=== PATIENT | female | born 1945 | race Caucasian/White ===

== ENCOUNTER 2018-02-26 06:34 | Inpatient (IN) ==
[2018-02-26] MEDS ORDERED: Post-op Orders (for Pharmacy) OTHER STA (06:58)
[2018-02-26] MEDS ORDERED: Chlorhexidine Gluconate 2% 1 Pack (2 Cloths) TOPICAL ONE (08:04)
[2018-02-26] MEDS ORDERED: ceFAZolin 2 GM Premix Inj 2 GM/50 ML PIGGYBACK IV.SIG ONE (08:04)
[2018-02-26] MEDS ORDERED: Sodium Chlor 0.9% Inj 250 ML ONE (08:04)
[2018-02-26] MEDS ORDERED: Dexamethasone Inj 20 MG/5 ML Vial ONE (08:04)
[2018-02-26] MEDS ORDERED: Metoprolol Tartrate 25 MG Tablet PO SCH (08:04)
[2018-02-26] MEDS ORDERED: Dexamethasone Inj 20 MG/5 ML Vial IV.PUSH SCH (08:07)
[2018-02-26] MEDS ORDERED: Chlorhexidine 4% Topical 120 APPLIC/120 ML Bottle TOPICAL SCH (08:15)
[2018-02-26] MEDS ORDERED: Lidocaine PF 1% Inj 5 ML Vial ONE (08:45)
[2018-02-26] MEDS ORDERED: ceFAZolin 2 GM Premix Inj 2 GM/50 ML PIGGYBACK IV.SIG SCH (09:00)
[2018-02-26] MEDS: Senna/Docusate Sodium 8.6/50 MG Tablet PO SCH ×2 (09:00→20:45)
[2018-02-26] MEDS ORDERED: Sodium Chlor 0.9% Inj 500 ML IV.SIG SCH (09:00)
[2018-02-26] MEDS ORDERED: Vancomycin Inj 1,000 MG in Sodium Chlor 0.9% Inj 250 ML IV.SIG SCH (09:00)
[2018-02-26] MEDS ORDERED: Sodium Chlor 0.9% Inj 73.07 ML, Ropivacaine 0.5% PF Inj 24.63 ML, Ketorolac Inj 30 MG, ... P-ARTICULR SCH ×5 (09:00)
[2018-02-26] MEDS ORDERED: TRANEXAMIC ACID IV.SIG SCH (09:00)
[2018-02-26] MEDS: Carvedilol 12.5 MG Tablet PO SCH ×2 (09:00→20:44)
[2018-02-26] MEDS ORDERED: SODIUM CHLOR 0.9% IV.SIG SCH (09:00)
[2018-02-26] MEDS: Pantoprazole Sodium 20 MG DR Tablet PO SCH (09:00)
[2018-02-26] MEDS ORDERED: Tranexamic Acid Inj 3,000 MG in Sodium Chlor 0.9% Inj 100 ML P-ARTICULR SCH (09:00)
[2018-02-26] MEDS: Multivitamin/Minerals Therapeutic Tablet PO SCH ×2 (09:00→20:44)
[2018-02-26] MEDS ORDERED: Succinylcholine Inj 100 MG/5 ML Syringe IV.PUSH ONE (09:30)
[2018-02-26] MEDS ORDERED: Lidocaine PF 1% Inj 5 ML Syringe OTHER ONE (09:30)
[2018-02-26] MEDS ORDERED: Phenylephrine/NS 1000 MCG/10ML Syringe IV.PUSH ONE (09:30)
[2018-02-26] MEDS ORDERED: Glycopyrrolate Inj 1 MG/5 ML Syringe IV.PUSH ONE (09:30)
[2018-02-26] MEDS ORDERED: fentaNYL Citrate Inj 100 MCG/2 ML Ampul ONE (11:28)
[2018-02-26] MEDS ORDERED: *Meperidine Inj 25 MG/ML Vial PERIprocedural Use ONLY ONE (11:39)
[2018-02-26] MEDS ORDERED: *morphine SULFATE 4 MG/ML PERIprocedure ONLY ONE ×3 (12:12→14:40)
--- NOTE | 2018-02-26 12:51 | XR ---
EXAM DATE: 02/26/2018 12:01 PM EDT AGE/SEX: 73 years / Female INDICATIONS: Post-op right total knee arthroplasty. CLINICAL DATA: This is the patient's initial encounter. Patient reports that signs and symptoms have been present for 1 day and indicates a pain score of 7/10. MEDICAL/SURGICAL HISTORY: Hypertension. Tonsillectomy. Arthroscopy. COMPARISON: POI, XR KNEE COMPLETE, RIGHT, 03/01/2017. . FINDINGS: AP and lateral views of the knee following arthroplasty reveals a prosthesis in anatomic alignment. F racture is not appreciated. Moderate air is present within the joint. CONCLUSION: Status post total knee arthroplasty. Aaron Berg MD FACR Electronically signed by: Aaron Berg MD 02/26/2018 12:50 PM EDT
--- NOTE | 2018-02-26 13:11 | MP ---
cc: Francisco Ryenolds MD DATE OF OPERATION: 02/26/2018 PREOPERATIVE DIAGNOSIS: Right knee osteoarthritis. POSTOPERATIVE DIAGNOSIS: Right knee osteoarthritis. PROCEDURE PERFORMED: Right total knee arthroplasty. SURGEON: Francisco Reynolds MD MICROBIOLOGY LAB MANAGER: KATELYN Medina ANESTHESIA: General with a femoral nerve adductor canal block. ESTIMATED BLOOD LOSS: 100 mL. TOURNIQUET TIME: 27 minutes at 250 mmHg. COMPLICATIONS: None. IMPLANTS USED: DePuy Attune size 6 narrow posterior stabilized femoral component, size 5 rotating platform tibial baseplate, size 6 mm polyethylene tibial insert and size 35 patella. JUSTIFICATION: This patient is a 73-year-old female with a history of severe end-stage osteoarthritis involving the right knee. She has severe disabling pain with standing, walking, ambulation, weightbearing activities and severe pain at rest. She has failed greater than 3 months of nonoperative conservative treatment to include medication therapy, injections, ambulatory assistive aids, home exercise program, activity modification and weight loss. X-ray of the right knee reveal severe osteoarthritis with joint space narrowing, subchondral sclerosis, subchondral cysts, osteophyte formation with subluxation. The patient was counseled on the risks, benefits and alternatives to a total knee arthroplasty. The risks were discussed, which included, but were not limited to anesthesia, bleeding, infection, damage to nerves and blood vessels, pain, stiffness, failure of components, blood clots, pulmonary embolism and even . The patient's pain is very severe. She favored the benefits over the risks. She did wish to proceed with surgery. PROCEDURE IN DETAIL: Written consent was obtained. The patient was identified by name, taken to the operating room and placed supine on the operating table. General anesthesia was administered as well as 2 grams of IV Ancef and 1 gram of IV vancomycin. A well-padded tourniquet was placed on the right thigh. The right lower extremity was prepped and draped using isopropyl alcohol, Hibiclens solution and ChloraPrep solution. After a timeout was performed, an Esmarch bandage was used to exsanguinate the right lower extremity and the tourniquet was inflated to 250 mmHg. A longitudinal incision was made over the anterior aspect of the right knee. A medial parapatellar arthrotomy was performed. The patella was everted. Patellar resection guide was used to resect 9 mm of the patella. A size 35 mm guide was placed. Three drill holes were placed and a 35 mm trial fit well. Attention was turned to the femur where an intramedullary guide was placed and distal femoral guide was set to remove 10 mm of distal femur 5 degrees off the anatomic valgus axis alignment. An oscillating saw was used to perform the distal femoral cut. Attention was turned to the tibia where an extramedullary tibial guide was set to remove 6 mm of the lowest portion of the medial tibial plateau. The tibial guide was pinned into placed and the tibial cut was performed. A 5 mm spacer block showed full extension. Attention was turned back to the femur where the AP sizing block showed a size 6. The anterior reference 3-degree external rotation guide was used to pin a size [address] The anterior, posterior and chamfer cuts were performed. A size 6 PCL box was pinned in place and the PCL was boxed out with an oscillating saw. The medial and lateral meniscus remnants were removed as well as bone and soft tissue debris from the posterior portion of the knee. A size 5 tibia baseplate was pinned in place and tibia was drilled with a punch. Trial components were evaluated and the final components were cemented into place. With the current components, the leg could achieve full extension to 0 degrees and flexion to 140. No evidence of tibial liftoff. Varus valgus balance appeared appropriate and symmetric and the patella was noted to track centrally. With the tourniquet deflated, Bovie cautery was used for hemostasis. SURGICAL was thoroughly irrigated with sterile saline pulse lavage with antibiotic-impregnated solution. The arthrotomy incision was closed with #1 Vicryl suture, subcutaneous layer with 2-0 Vicryl suture and skin closed with Dermabond. Sterile dressings were applied. The patient tolerated the procedure well with no intraoperative complications noted. Lazarus Ibrahim, physician administrative personal assistant certified, was present for the procedure to include patient positioning and the procedure itself. The medical necessity of a physician administrative personal assistant was indicated in this case due to the complexity of the procedure. He assisted with appropriate manipulation of the leg and also retraction of muscle, tendon, bone and neurovascular structures. He assisted in preparation of bone and also implantation of the prosthetic replacement. MD BRITNEY Guy/evangelist , 11:09 AM , 11:22 AM
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
[2018-02-26] MEDS: ceFAZolin 2 GM Premix Inj 2 GM/50 ML PIGGYBACK IV.SIG SCH ×2 (15:59→21:00)
[2018-02-26] MEDS ORDERED: Zolpidem Tartrate 5 MG Tablet PO PRN (21:00)
[2018-02-27] MEDS: ceFAZolin 2 GM Premix Inj 2 GM/50 ML PIGGYBACK IV.SIG SCH (04:35)
[2018-02-27 07:26] LABS: Hematocrit 29.8 % (35.0-46.0); Hemoglobin 10.6 gm/dL (11.6-15.3)
[2018-02-27 07:45] LABS: Calcium 8.1 mg/dL (8.5-10.1); Carbon Dioxide 26.1 meq/L (21.0-32.0)
--- NOTE | 2018-02-27 08:33 | P.PNOP ---
Subjective Interval history: pain tolerable Physical Exam Vital signs: Vital Signs 02/26/18 11:25 02/26/18 11:40 02/26/18 11:55 Temperature 97.7 F Pulse Rate 91 H 76 67 Respiratory Rate 20 16 18 Blood Pressure 127/86 144/65 H 129/59 L Pulse Oximetry 94 L 96 97 02/26/18 12:10 02/26/18 13:00 02/26/18 14:00 Temperature Pulse Rate 66 63 60 Respiratory Rate 18 18 18 Blood Pressure 121/61 112/64 117/65 Pulse Oximetry 94 L 99 99 02/26/18 16:00 02/26/18 17:30 02/26/18 20:00 Temperature 98.0 F 98.2 F 98.9 F Pulse Rate 57 L 65 69 Respiratory Rate 20 20 17 Blood Pressure 120/65 129/61 128/81 Pulse Oximetry 96 98 98 02/26/18 23:45 02/27/18 04:20 02/27/18 08:00 Temperature 97.5 F L 97.5 F L 98.2 F Pulse Rate 59 L 62 59 L Respiratory Rate 17 17 17 Blood Pressure 116/57 L 96/58 L 120/56 L Pulse Oximetry 97 96 97 Intake & Output 02/26/18 02/27/18 02/27/18 18:59 06:59 18:59 Intake Total 1209.465 / 5608.990 6223 / 1580 Output Total 100 / 100 Balance 1109.465 / 2525.514 1236 / 1580 Weight 63.1 kg 63.1 kg Intake: IV 1209.465 / 5112.960 4356 / 1100 LR 1000 mL Inj 1,000 ML @ 80 1000 / 1000 1000 / 1000 mls/hr IV.CONT .[id number] [facility] Rx# :[id number] Cyklokapron Inj 946.5 MG In NS 109.465 / 109.465 Inj 100 ML @ 200 mls/hr IV.SIG MOTHER BABY RN [facility] Rx#:[id number] Ancef 2 GM Premix Inj 2 gm In 100 / 100 100 / 100 50 ml @ 100 mls/hr IV.SIG Q6H [facility] Rx#:[id number] Oral 480 / 480 Output: Estimated Blood Loss 100 / 100 Other: # Voids 2 # Incontinent Voids 1 # Bowel Movements 0 Weight On Admission 63.1 kg Narrative: in bed, nad dressing c/d/i neg homans nvi Results - Labs CBC & Chem 7: 02/27/18 06:09 02/27/18 06:09 Laboratory Results - last 24 hr 02/26/18 02/27/18 02/27/18 07:28 06:09 06:09 Hgb 10.6 L Hct 29.8 L Sodium 141 Potassium 4.0 Chloride 107 Carbon Dioxide 26.1 Anion Gap 8 BUN 17 Creatinine 0.87 Estimated GFR 64 L Random Glucose 110 H Calcium 8.1 L Blood Type O Positive Blood Type Recheck Required Antibody Screen Negative - Imaging Impressions Knee X-Ray 02/26/18 06:56 CONCLUSION: Status post total knee arthroplasty. Aaron Berg MD FACR Assessment and Plan - Ortho Post Op Day # 1 - Assessment and Plan s/p R TKA wbat ok to maintain dressing unless saturated asa 81 d/c planning to snf f/up dr. shearer 2 weeks
[2018-02-27] MEDS: Pantoprazole Sodium 20 MG DR Tablet PO SCH (08:53)
[2018-02-27] MEDS: Senna/Docusate Sodium 8.6/50 MG Tablet PO SCH ×2 (08:53→20:58)
[2018-02-27] MEDS: Carvedilol 12.5 MG Tablet PO SCH ×2 (08:53→20:58)
--- NOTE | 2018-02-27 11:09 | P.PNIM ---
Subjective Interval history: Follow-up osteoarthritis, status post right knee arthroplasty, hypertension and seasonal allergy. Patient seen and examined, laying in bed stated pain is controlled with pain medication, have some slight pain but does not want to take any pain medication right now, patient want to wait for later. Patient complained about some coughing from her seasonal allergy. Stated taking Zyrtec and nose spray/Nasalcrom at home. Discussed will restart restart on Zyrtec and nasal spray. Patient denies any headache or dizziness, denies any pain, chest pain or shortness of breath. Patient denies any abdominal pain, nausea vomiting , diarrhea or constipation. Patient denies any fever or chills. Physical Exam Vital signs: Vital Signs 02/26/18 11:25 02/26/18 11:40 02/26/18 11:55 Temperature 97.7 F Pulse Rate 91 H 76 67 Respiratory Rate 20 16 18 Blood Pressure 127/86 144/65 H 129/59 L Pulse Oximetry 94 L 96 97 02/26/18 12:10 02/26/18 13:00 02/26/18 14:00 Temperature Pulse Rate 66 63 60 Respiratory Rate 18 18 18 Blood Pressure 121/61 112/64 117/65 Pulse Oximetry 94 L 99 99 02/26/18 16:00 02/26/18 17:30 02/26/18 20:00 Temperature 98.0 F 98.2 F 98.9 F Pulse Rate 57 L 65 69 Respiratory Rate 20 20 17 Blood Pressure 120/65 129/61 128/81 Pulse Oximetry 96 98 98 02/26/18 23:45 02/27/18 04:20 02/27/18 08:00 Temperature 97.5 F L 97.5 F L 98.2 F Pulse Rate 59 L 62 59 L Respiratory Rate 17 17 17 Blood Pressure 116/57 L 96/58 L 120/56 L Pulse Oximetry 97 96 97 Intake & Output 02/26/18 02/27/18 02/27/18 18:59 06:59 18:59 Intake Total 1209.465 / 2730.311 8891 / 1580 Output Total 100 / 100 Balance 1109.465 / 7449.518 1574 / 1580 Weight 63.1 kg 63.1 kg Intake: IV 1209.465 / 5678.386 3615 / 1100 LR 1000 mL Inj 1,000 ML @ 80 1000 / 1000 1000 / 1000 mls/hr IV.CONT .[id number] [facility] Rx# :[id number] Cyklokapron Inj 946.5 MG In NS 109.465 / 109.465 Inj 100 ML @ 200 mls/hr IV.SIG STOKER ERECTOR [facility] Rx#:[id number] Ancef 2 GM Premix Inj 2 gm In 100 / 100 100 / 100 50 ml @ 100 mls/hr IV.SIG Q6H [facility] Rx#:[id number] Oral 480 / 480 Output: Estimated Blood Loss 100 / 100 Other: # Voids 2 # Incontinent Voids 1 Date of Last Bowel Movement 02/25/18 # Bowel Movements 0 Weight On Admission 63.1 kg Narrative: GENERAL: Well-developed, well-nourished, female in no apparent distress SKIN: Warm and dry. HEAD: Atraumatic. Normocephalic. EYES: Pupils equal and round. No scleral icterus. No injection or drainage. ENT: No nasal bleeding or discharge. Mucous membranes pink and moist. NECK: Trachea midline. No JVD. CARDIOVASCULAR: Regular rate and rhythm. RESPIRATORY: No accessory muscle use. Clear to auscultation. Breath sounds equal bilaterally. GASTROINTESTINAL: Abdomen soft, non-tender, nondistended. Hepatic and splenic margins not palpable. MUSCULOSKELETAL: Extremities without clubbing, cyanosis. No obvious deformities. Right knee incision dressed clean dry and intact with trace edema NEUROLOGICAL: Awake and alert. No obvious cranial nerve deficits. Motor grossly within normal limits. Generalized weakness right lower extremity with limited range of motion moving all other all 3 extremities . Normal speech. PSYCHIATRIC: Appropriate mood and affect; insight and judgment normal. Results - Labs CBC & Chem 7: 02/27/18 06:09 02/27/18 06:09 Laboratory Results - last 24 hr 02/27/18 02/27/18 06:09 06:09 Hgb 10.6 L Hct 29.8 L Sodium 141 Potassium 4.0 Chloride 107 Carbon Dioxide 26.1 Anion Gap 8 BUN 17 Creatinine 0.87 Estimated GFR 64 L Random Glucose 110 H Calcium 8.1 L - Imaging Impressions Knee X-Ray 02/26/18 06:56 CONCLUSION: Status post total knee arthroplasty. Aaron Berg MD FACR Assessment and Plan - Assessment (1) Hypertension Code(s): I10 - Essential (primary) hypertension Status: Acute (2) Osteoarthritis Code(s): M19.90 - Unspecified osteoarthritis, unspecified site Status: Acute - Plan 73-year-old white female admitted the same day surgery. Medicine consulted for medical management. Status post right knee arthroplasty Osteoarthritis We will defer anticoagulation and pain management to Ortho, recommend Lovenox and/or a novel oral anticoagulation upon discharge -Continue home calcium supplementation Hypertension/Coronary artery disease -BP Controlled, in the low side - No CP, no SOB Continue home aspirin, Lipitor, and Coreg -decrease Losartan dose -monitor BP Seasonal allergy -Acute on chronic -Continue Zyrtec -Add fluticasone spray as needed DVT prophylaxis: SCD, and per Ortho recommendation Patient made medically stable, will sign off. Thank you for your consultation and will be available as needed Code Status: Full code Discussed Condition With: Patient, and nurse
[2018-02-27] MEDS: Calcium/Vitamin D 250/125 MG Tablet PO SCH (17:17)
[2018-02-27] MEDS: Lactobacillus Acidophilus/L. Spores Tablet PO SCH (17:17)
[2018-02-27] MEDS: Multivitamin/Minerals Therapeutic Tablet PO SCH ×2 (17:18→20:58)
[2018-02-28] MEDS: Morphine Inj 4 MG/ML Vial IV.PUSH PRN (00:07)
[2018-02-28 05:46] LABS: Hematocrit 31.3 % (35.0-46.0); Hemoglobin 10.7 gm/dL (11.6-15.3)
[2018-02-28 06:12] LABS: Calcium 8.5 mg/dL (8.5-10.1); Carbon Dioxide 30.8 meq/L (21.0-32.0); Potassium 4.3 meq/L (3.5-5.1)
[2018-02-28] MEDS: Pantoprazole Sodium 20 MG DR Tablet PO SCH (09:03)
[2018-02-28] MEDS: Carvedilol 12.5 MG Tablet PO SCH ×2 (09:03→20:00)
[2018-02-28] MEDS: Senna/Docusate Sodium 8.6/50 MG Tablet PO SCH ×2 (09:04→20:01)
[2018-02-28] MEDS: Lactobacillus Acidophilus/L. Spores Tablet PO SCH (09:08)
[2018-02-28] MEDS: Multivitamin/Minerals Therapeutic Tablet PO SCH ×2 (09:09→20:01)
[2018-02-28] MEDS: Calcium/Vitamin D 250/125 MG Tablet PO SCH (09:09)
--- NOTE | 2018-02-28 13:34 | P.PNOP ---
Subjective Interval history: painful last night, better now. Physical Exam Vital signs: Vital Signs 02/27/18 16:00 02/27/18 20:07 02/27/18 21:26 Temperature 98.3 F 98.9 F Pulse Rate 64 67 Respiratory Rate 18 18 18 Blood Pressure 127/58 L 143/64 H Pulse Oximetry 96 97 02/27/18 23:53 02/28/18 04:00 02/28/18 05:27 Temperature 98.4 F 98.3 F Pulse Rate 71 68 Respiratory Rate 18 17 18 Blood Pressure 107/54 L 123/58 L Pulse Oximetry 96 94 L 02/28/18 08:00 Temperature 98.5 F Pulse Rate 81 Respiratory Rate 17 Blood Pressure 122/56 L Pulse Oximetry 94 L Intake & Output 02/27/18 02/28/18 02/28/18 18:59 06:59 18:59 Intake Total 1000 / 1000 480 / 480 Balance 1000 / 1000 480 / 480 Weight 63.1 kg Intake: IV 1000 / 1000 LR 1000 mL Inj 1,000 ML @ 30 1000 / 1000 mls/hr IV.SIG .Q24H EVY Rx#: [id number] Oral 480 / 480 Other: # Voids 2 3 Date of Last Bowel Movement 02/25/18 02/25/18 02/25/18 # Bowel Movements 0 Narrative: seen in group PT class, nad dressing c/d/i neg manjeet oconnori Results - Labs CBC & Chem 7: 02/28/18 04:14 02/28/18 04:14 Laboratory Results - last 24 hr 02/28/18 02/28/18 04:14 04:14 Hgb 10.7 L Hct 31.3 L Sodium 142 Potassium 4.3 Chloride 106 Carbon Dioxide 30.8 Anion Gap 5 BUN 14 Creatinine 0.87 Estimated GFR 64 L Random Glucose 95 Calcium 8.5 Assessment and Plan - Ortho Post Op Day # 2 - Assessment and Plan s/p R TKA wbat ok to maintain dressing unless saturated asa 81 d/c planning to snf - zeynep f/up dr. shearer 2 weeks
[2018-03-01] MEDS ORDERED: Calcium Chloride Inj 1 GM in Dextrose 5% in Water Inj 100 ML IV.SIG ONE ×2 (04:18)
[2018-03-01] MEDS ORDERED: Sodium Chlor 0.9% Inj 500 ML IV.SIG SCH ×2 (05:00→07:00)
[2018-03-01 05:17] LABS: Baso % (Auto) 0.4 % (0.0-2.0); Eos # (Auto) 0.1 th/mm3 (0.0-0.4); Eos % (Auto) 1.2 % (0.0-4.0); Hemoglobin 11.2 gm/dL (11.6-15.3); Lymph # (Auto) 1.7 th/mm3 (1.0-4.8); Lymph % (Auto) 15.2 % (9.0-44.0); Mean Corpuscular Hemoglobin 32.1 pg (27.0-34.0); Mean Corpuscular Volume 91.7 fL (80.0-100.0); Mean Platelet Volume 9.1 fL (7.0-11.0); Mono # (Auto) 1.1 th/mm3 (0.0-0.9); Mono % (Auto) 9.8 % (0.0-8.0); Neut # (Auto) 8.1 th/mm3 (1.8-7.7); Neut % (Auto) 73.4 % (16.0-70.0); Platelet Count 157 th/mm3 (150-450); Red Blood Count 3.49 mil/mm3 (4.00-5.30)
[2018-03-01 05:30] LABS: Alanine Aminotransferase 15 U/L (10-53); Alkaline Phosphatase 66 U/L (45-117); Anion Gap 8 meq/L (5-15); Aspartate Aminotransferase 24 U/L (15-37); Blood Urea Nitrogen 10 mg/dL (7-18); Calcium 8.3 mg/dL (8.5-10.1); Carbon Dioxide 27.8 meq/L (21.0-32.0); Chloride 104 meq/L (98-107); Glomerular Filtration Rate 85 mL/min (>89); Glucose,Random 116 mg/dL (74-106); Potassium 3.3 meq/L (3.5-5.1); Sodium 140 meq/L (136-145); Total Protein 7.1 g/dL (6.4-8.2)
[2018-03-01] MEDS: Potassium Chlor 20 mEq Premix 20 MEQ/100 ML PIGGYBACK IV.SIG SCH ×2 (06:33→08:46)
[2018-03-01] MEDS ORDERED: Chlorhexidine Gluconate 2% 1 Pack (2 Cloths) TOPICAL SCH (07:45)
[2018-03-01] MEDS ORDERED: Mupirocin 2% Nasal Oint Topical Syringe EACH NARE SCH (07:45)
--- NOTE | 2018-03-01 08:24 | P.PNOP ---
Subjective Interval history: had episode of irregular heart rate. transferred to ICU. feels ok now, but scheduled for pacemaker tomorrow. Physical Exam Vital signs: Vital Signs 02/28/18 11:06 02/28/18 12:00 02/28/18 15:40 Temperature 97.9 F 98.8 F Pulse Rate 82 62 Respiratory Rate 16 17 18 Blood Pressure 108/55 L 123/57 L Pulse Oximetry 94 L 95 02/28/18 19:25 02/28/18 20:00 03/01/18 00:00 Temperature 98.7 F 97.9 F 98.0 F Pulse Rate 76 72 76 Respiratory Rate 18 18 18 Blood Pressure 126/58 L 128/60 115/55 L Pulse Oximetry 95 96 95 03/01/18 03:00 03/01/18 04:30 Temperature 98.1 F Pulse Rate 148 H 122 H Respiratory Rate 23 Blood Pressure 116/60 Pulse Oximetry 93 L Intake & Output 02/28/18 03/01/18 03/01/18 18:59 06:59 18:59 Intake Total 740 / 740 500 / 500 Balance 740 / 740 500 / 500 Weight 65.8 kg Intake: IV 500 / 500 500 / 500 NS Inj 500 ML @ 1000 mls/hr IV. 500 / 500 500 / 500 SIG BOLUS EVY Rx#:[id number] Oral 240 / 240 Other: # Voids 3 3 Date of Last Bowel Movement 02/25/18 02/25/18 Narrative: in bed, nad dressing c/d/i neg homans nvi Results - Labs CBC & Chem 7: 03/01/18 05:00 03/01/18 05:00 Laboratory Results - last 24 hr 03/01/18 03/01/18 05:00 05:00 WBC 11.0 RBC 3.49 L Hgb 11.2 L Hct 32.0 L MCV 91.7 MCH 32.1 MCHC 35.0 RDW 13.0 Plt Count 157 MPV 9.1 Neut % (Auto) 73.4 H Lymph % (Auto) 15.2 [place] % (Auto) 9.8 H Eos % (Auto) 1.2 Baso % (Auto) 0.4 Neut # (Auto) 8.1 H Lymph # (Auto) 1.7 [place] # (Auto) 1.1 H Eos # (Auto) 0.1 Baso # (Auto) 0.0 WBC Differential . Differential Comment Auto diff final Sodium 140 Potassium 3.3 L D Chloride 104 Carbon Dioxide 27.8 Anion Gap 8 BUN 10 Creatinine 0.68 Estimated GFR 85 L Random Glucose 116 H Calcium 8.3 L Total Bilirubin 0.7 AST 24 ALT 15 Alkaline Phosphatase 66 Total Protein 7.1 Albumin 3.0 L Assessment and Plan - Ortho Post Op Day # 3 - Assessment and Plan s/p R TKA wbat ok to maintain dressing unless saturated asa [address] pacemaker tomorrow d/c planning to snf when cleared by cardiology f/up dr. shearer 2 weeks
[2018-03-01] MEDS: Lactobacillus Acidophilus/L. Spores Tablet PO SCH (08:47)
[2018-03-01] MEDS: Pantoprazole Sodium 20 MG DR Tablet PO SCH (08:47)
[2018-03-01] MEDS: Multivitamin/Minerals Therapeutic Tablet PO SCH ×2 (08:47→21:32)
[2018-03-01] MEDS: Calcium/Vitamin D 250/125 MG Tablet PO SCH (08:47)
--- NOTE | 2018-03-01 09:02 | MB ---
cc: Jorge Webb MD, Anthony A MD DATE: 03/01/2018 REFERRING PHYSICIAN: Francisco Reynolds MD. REASON FOR EVALUATION: Paroxysmal atrial fibrillation with pauses post knee replacement. PRIMARY CARE DOCTOR: Dr. Pack. HISTORY: Ms. Smith is a 73-year-old white female known to me with a history of ASHD, prior anterior apical infarct 02/08/2013, ttlo-du-wdyjerdd left ventricular dysfunction, prior drug-eluting stent implant to the mid LAD 02/08/2013, hypertension, who is here for an elective right knee replacement. The patient surgery went well on 02/26. She had been doing well from a cardiac standpoint prior to that, except for the last few weeks she has had increasing episodes of palpitations and dizzy spells. She has had no syncope or falls. She says she has had these for many years, but recently they have increased in frequency and duration. She was initially evaluated by her primary care physician and felt to have either vertigo or vasovagal symptoms. While on the monitor here, she has had multiple episodes of paroxysmal atrial fibrillation with a rapid ventricular response. She has also had multiple pauses of 3 seconds and some greater than 4 seconds documented on telemetry. She is otherwise feeling well, postoperatively recovering. She has been taking all of her medications as directed. CURRENT MEDICATIONS: Include aspirin 81 mg daily, Lipitor 20 mg daily, calcium carbonate 500 mg daily, carvedilol 12.5 mg b.i.d., Zyrtec 10 mg daily, Cozaar 25 mg daily. She has been receiving some intermittent morphine for pain. She is currently receiving some potassium supplementation intravenously. PAST MEDICAL HISTORY: As mentioned above, myocardial infarction in 2012 with subsequent PCI and stent implant of the LAD, hypercholesterolemia, hypertension, cervical cancer, multiple orthopedic problems. Denies any prior history of stroke; TIA; diabetes; thyroid, liver, or kidney disease. PAST SURGICAL HISTORY: Drug-eluting stent implant mid LAD 02/08/2013. Hip surgery 06/2006 and 03/2007. Right knee replacement a few days ago as mentioned. Neuroma removed from the right foot. Total abdominal hysterectomy in 1997. Arthroscopic knee surgery in 1996. ALLERGIES: COMPAZINE AND DILAUDID. FAMILY HISTORY: Father with Parkinson disease, age 59. Mother of heart disease and hypertension, age 75. Half brother, age 64, alive and well. SOCIAL HISTORY: The patient denies tobacco, alcohol, or illicit drug use now or in the past. She is retired from marketing since 2004, does no regular exercise. REVIEW OF SYSTEMS: Denies lower extremity edema or claudication. Denies any syncopal episodes, although has had increasing frequency of palpitations and lightheadedness. Denies fevers, chills, night sweats, nausea, vomiting, diarrhea. Denies any bleeding or clotting disorders. Except that mentioned in the HPI, a complete 12-point review of systems is otherwise negative. PHYSICAL EXAMINATION: GENERAL: Reveals an elderly white female lying in bed, no distress. VITAL SIGNS: Blood pressure 116/60 mmHg, heart rate is 55 and regular, respiratory rate 18, temperature 98.1, oxygen saturation 93% on room air. HEENT: Head is normocephalic and atraumatic. Pupils equal, round, reactive to light. Sclerae are anicteric. Extraocular movements intact. NECK: Supple. There is no adenopathy. There is no jugular venous distention at 45 degrees. Carotid upstrokes are normal with no bruits. Thyroid exam is normal. LUNGS: Clear. HEART: PMI is not displaced. S1, S2 normal. No murmurs, gallops, clicks, or rubs. ABDOMEN: Benign. EXTREMITIES: No cyanosis, clubbing, or edema. Perfusion is adequate. There is a brace on the right knee. NEUROLOGIC: Nonfocal. DIAGNOSTIC DATA: From my office, 08/30/2017, she had a nuclear pharmacologic stress - myocardial perfusion imaging test, which was abnormal showing an transmural anteroapical and inferoapical and septal infarct. No ischemia. Left ventricular ejection fraction was 43%. An echocardiogram from 07/07/2016, showed a left ventricular ejection fraction of 45% with hypokinesis in the distal anterior wall and dns-pe-yyluhm septum, inferior wall, and apex. Left atrial enlargement. Mild mitral and tricuspid regurgitation. Labs from this morning: CBC: White count 11.0, hemoglobin 11.2, platelet count 157,000. Chemistry: Sodium 140; potassium 3.3, down from 4.3 yesterday; BUN 10; creatinine 0.68; calcium 8.3; AST 24. Telemetry EKG shows atrial fibrillation with a rapid ventricular response. Telemetry reviewed from yesterday and this morning shows paroxysmal atrial fibrillation, rapid ventricular response at times. Multiple pauses of over 3 seconds and 1 documented pause greater than 4 seconds during atrial fibrillation. Currently in sinus bradycardia. IMPRESSION: 1. Sick sinus syndrome with paroxysmal atrial fibrillation. 2. Multiple episodes of dizziness, lightheadedness, and near syncope likely secondary to number 1. 3. Hypertensive heart disease, atherosclerotic heart disease with ischemic cardiomyopathy and xyza-bv-seillxfl left ventricular dysfunction, currently compensated. 4. Hypertensive heart disease. 5. Status post right knee replacement, postop day number 3. 6. Hypercholesterolemia on statin therapy. 7. History of drug-eluting stent implant left anterior descending, 02/08/2013. RECOMMENDATIONS: The patient is clearly having episodes of sick sinus syndrome, which are symptomatic. At this point, I think a permanent pacemaker is indicated and will be helpful in managing her condition. I discussed the indications, benefits, risks, and alternatives with the patient in detail. Risks discussed include infection, pneumothorax, bleeding, cardiac perforation, tamponade, . She understands these risks and is wishing and willing to proceed as planned. We will prep her today for plans for permanent dual-chamber pacemaker implant tomorrow morning. She is left handed but does no strenuous activity with the left hand, so it will be placed on the left side. Consents will be signed. Orders written. Case discussed with Dr. Reynolds. Following her pacemaker, she will likely benefit from the addition of antiarrhythmic therapy, which would be safe at that time without concerns about aggravating bradycardia and long pauses. Further recommendations will follow. N.p.o. after midnight tonight. Thank you for allowing me to participate in the care of this patient. MD MARYAM Anderson/jeni , 08:21 AM , 08:36 AM
[2018-03-01] MEDS: Senna/Docusate Sodium 8.6/50 MG Tablet PO SCH ×3 (09:06→22:57)
--- NOTE | 2018-03-01 14:29 | XR ---
EXAM DATE: 03/01/2018 2:06 PM EDT AGE/SEX: 73 years / Female INDICATIONS: Evaluate for pneumonia, pneumothorax, or communicable disease. Pre op for pacemaker gonzález orrow. CLINICAL DATA: This is the patient's initial encounter. Patient reports that signs and symptoms have been present for 1 week and indicates a pain score of 0/10. MEDICAL/SURGICAL HISTORY: . heart attack, a-fib,hx of right apical lung nodule. . coronary art bal stent, recent knee surgery. COMPARISON: No prior exams available for comparison. FINDINGS: PA and lateral views of the chest demonstrate the lungs to be symmetrically aerated without evidence of mass, infiltrate or effusion. The cardiomediastinal contours are unremarkable. Osseous structures are intact. Coronary artery stent. Heart borderline enlarged. CONCLUSION: No acute cardiopulmonary disease Electronically signed by: George Meraz MD 03/01/2018 2:28 PM EDT
--- NOTE | 2018-03-01 14:29 | ECG ---
Date Performed: 03/01/2018 Time Performed: 03:31:10 PTAGE: 73 years EKG: Atrial fibrillation with rapid ventricular response. Inferior infarct - age undetermined Po ssible anteroseptal infarct - age undetermined Lateral T wave changes may be due to myocardial ischem ia Low QRS voltages in precordial leads Abnormal ECG NO PREVIOUS TRACING DOCTOR: Hi Cornejo Interpretating Date/Time 03/01/2018 14:26:35
--- NOTE | 2018-03-01 14:30 | ECG ---
Date Performed: 03/01/2018 Time Performed: 04:20:46 PTAGE: 73 years EKG: Atrial fibrillation with rapid ventricular response with frequent PVCs or aberrant ventricu lar conduction. Anteroseptal infarct - age undetermined Possible inferior infarct - age undetermined Since the previous tracing, no significant change noted Abnormal ECG PREVIOUS TRACING : 03/01/2018 03.31 DOCTOR: Hi Cornejo Interpretating Date/Time 03/01/2018 14:26:45
[2018-03-01 14:53] LABS: Magnesium 1.9 mg/dL (1.5-2.5); Potassium 3.8 meq/L (3.5-5.1)
[2018-03-01 15:06] LABS: Activated Partial Thrombo Time 27.6 sec (23.4-31.7); Prothrombin Time 10.6 sec (9.8-11.6)
[2018-03-01] MEDS: Morphine Inj 4 MG/ML Vial IV.PUSH PRN (15:35)
[2018-03-02 04:51] VITALS: BP 118/56; RESP 16; TEMP 98.7; O2SAT 94
[2018-03-02] MEDS ORDERED: fentaNYL Citrate Inj 100 MCG/2 ML Ampul ONE (07:15)
[2018-03-02] MEDS ORDERED: Lidocaine PF 1% Inj 30 ML Vial ONE (07:39)
[2018-03-02] MEDS ORDERED: Naloxone Inj 0.4 MG/ML Vial ONE (07:45)
[2018-03-02] MEDS ORDERED: Flumazenil Inj 1 MG/10 ML Vial ONE (07:45)
[2018-03-02] MEDS ORDERED: Carvedilol 12.5 MG Tablet PO SCH (08:23)
--- NOTE | 2018-03-02 08:36 | CATHPROC ---
[facility] HIS Report Study Information Study Number Admission Scheduled Start Study Start [id number] Feb 26 2018 6:34AM 03/02/2018 Mar 02 2018 6:56AM [facility] Cardiac Catheterization Admit Source Facility Department Other [facility] - [facility] Physician and Clinical Staff Initial MD Webb, Jorge Heel Brusher Mag Stephens,FENCE MAKER TECH2 Heel Brusher Elias Hammer,RN Recorder Jazzy Alan ,RT(R) Scrub Linda Modi,RT(R) Procedures Performed Procedure Lead Insertion Equipment Time Bilingual Administrative Assistant Description Size Mfg Part Number Used/Scraped [id number] 06:59 MEDLINE [employer] BLANKET,WARM AIR CCL * Used *[id number] [id number] 06:59 [employer] SUTURE, STRIP PLUS 1/2" * Used *[id number] TP-1103 06:59 [employer] SUTURE, STRIP PLUS 1/2" * Used *[id number] 06:59 MEDLINE PACER ADHESIVE, MASTISOL 2/3CC 2/3CC 0523-48 Used 06:59 MEDLINE PACER SANTOS, LIMB * 2530 *[id number] Used [id number] 06:59 MEDLINE PACER PACK, PACER CUSTOM * Used *[id number] 06:59 MEDLINE PACER PEN, SKIN DUAL W/ RULER * Used *[id number] 07:26 [employer] MEDICAL PACER SAFE SHEATH, FR6, 13CM FR 6 CLS-1006 Used 07:26 [employer] MEDICAL PACER SAFE SHEATH, FR6, 13CM FR 6 CLS-1006 Used 07:35 Needle Sponge Count 1 111 Used 07:35 Needle Sponge Count 20 200 Used 07:35 Needle Sponge Count 30 1 Used 07:34 Needle Sponge Count 4 4 Used [id number] *[id number] SUTURE, 2-0 SILK Strands (A185H) SUTURE, 3-0 VICRYL [SH] ([id number]) SUTURE, 4-0 MONOCRYL [PS2] (Y496G) SUTURE, 4-0 VICRYL [PS2] ([id number]) LEAD, TENDRIL STS 2087TC 07:53 [facility] [employer] 46CM 8TC/46CM Used 46CM LEAD, TENDRIL STS 2087TC 07:51 [facility] [employer] [facility] 52CM 2088TC/52CM Used 52CM PACEMAKER, ASSURITY DR MILLS 08:05 [facility] [id number] Used MRI [facility] PAD, ELECTROSURGICAL 06:59 * [id number] *[id number] Used SURGICAL GROUNDING ORANGE [id number] 06:59 [employer] KIMBER[employer]. / * Used *63313 Equipment Model, Serial, Lot Number and Expiration Data Description Model Number Serial Number Lot Number Expiration Date LEAD, TENDRIL STS 2088TC 46CM 8TC-46 [id number] 11-29-2019 LEAD, TENDRIL STS 2088TC 52CM 8TC-52 [id number] 11-28-2020 PACEMAKER, ASSURITY DR MILLS MRI [id number] 07-30-2019 History: Allergies Allergy Reaction prochlorperazine Cramping of the Muscles hydromorphone Nausea/Vomiting Medication Medication Total Dose (Bolus/Oral) Medication Total Dosage/Unit 2% XYLOCAINE 50 mL FENTANYL 50 mcg VERSED 2 mg Medications (Bolus/Oral) Medication Time Given Dosage/Unit Administered By Reason VERSED 03/02/2018 7:36:00 AM 1 mg Ryano, Elias 1 mg VERSED given by Elias Hammer RN via Peripheral IV. Ordered by Jorge Webb. FENTANYL 03/02/2018 7:37:00 AM 50 mcg Harman, Elias 50 mcg FENTANYL given by Elias Hammer RN via Peripheral IV. Ordered by Jorge Webb. 2% XYLOCAINE 03/02/2018 7:43:06 AM 50 mL Jorge Webb 50 mL 2% XYLOCAINE given by Jorge Webb via Subcutaneous. Ordered by Jorge Webb. VERSED 03/02/2018 7:46:00 AM 1 mg Ferlitto, Elias 1 mg VERSED given by Elias Hammer RN via Peripheral IV. Ordered by Jorge Webb. Chronological Log Time Study Chronological Log 7:05:40 Patient arrived via Bed. 7:05:45 Patient Name, D.O.B, / Armband Verified By R.N. Vitals capture started with the following parameters, Patient=Adult, Interval=5 min, Initial P dnfoigj=837 mmHg, 7:19:36 Deflation Rate=5 mmHg, Cuff placed on Right Arm 7:20:51 IF=401 bpm, XZFE=953/61 mmhg, SpO2=95.0 % 7:24:43 Consent signed by the physician and the patient and verified by the [facility] staff. 7:24:44 Pre-op and post- op instructions given; patient acknowledges understanding of instructions. 7:24:48 Patient has been NPO for More than 6Hrs. 7:24:54 Patient Warmer Placed on the Table. 7:24:55 Disposable Defibrillator Pads Placed On Patient. 7:24:55 Lucy Prominences Protected 7:24:58 A # 20 IV was noted in the Antecubital (left). Grade = 0 7:25:19 HR=71 bpm, YTWO=293/63 mmhg, SpO2=94.0 % 7:28:11 Reference ECG taken 7:30:00 MD arrived. 7:30:20 HR=74 bpm, SZBI=684/66 mmhg, SpO2=96.0 % First Sponge And Instrument Count Done by Mag Stephens, FENCE MAKER TECH2. 7:34:06 Hypo's: 4, Sponges: 30, Bovie/scratch: 1 Sutures: 4, Blades: 2, Instruments: 26, Syveck Patches: ~SYVECK PATCH~ 7:36:00 1 mg VERSED given by Elias Hammer, ALDO via Peripheral IV. Ordered by Jorge Webb. 7:36:02 HR=77 bpm, ROXD=607/68 mmhg, SpO2=96.0 % 7:37:00 50 mcg FENTANYL given by Elias Hammer, ALDO via Peripheral IV. Ordered by Jorge Webb. 7:40:22 HR=68 bpm, WZAE=006/66 mmhg, SpO2=92.0 % Time Out. Correct patient, procedure, procedure equipment, site and side verified with physician present. Time 7:42:09 concurred by , individual staff and POLITICAL REPORTER. 7:43:03 Case Start 7:43:06 50 mL 2% XYLOCAINE given by Jorge Webb via Subcutaneous. Ordered by Jorge Webb. 7:45:19 HR=73 bpm, KXZJ=150/61 mmhg, SpO2=95.0 % 7:46:00 1 mg VERSED given by Elias Hammer, ALDO via Peripheral IV. Ordered by Mark. Jon 7:46:02 Vascular access was obtained in the Subclav. Vein (Lft. 7:46:06 Vascular access was obtained in the Subclav. Vein (Lft. 7:47:42 A SAFE SHEATH, FR6, 13CM FR 6 was advanced into the Subclav. Vein (Lft using the Percutaneou s technique. 7:48:17 Surgical Incision Made. 7:48:39 pocket was made 7:49:05 Two antibiotic sponges put into the surgical pocket. 7:49:53 A LEAD, TENDRIL STS 2088TC 52CM 52CM was inserted and positioned in the ~LOCATION~. 7:50:18 HR=67 bpm, IIEA=881/58 mmhg, SpO2=92.0 % 7:51:31 A SAFE SHEATH, FR6, 13CM FR 6 was advanced into the Subclav. Vein (Lft using the Percutaneou s technique. 7:52:25 A LEAD, TENDRIL STS 2088TC 46CM 46CM was inserted and positioned in the ~LOCATION~. 7:55:48 HR=90 bpm, VHYC=381/55 mmhg, SpO2=92.0 % 7:56:41 Lead placement verified under fluoroscopy 7:56:44 Lead placement verified under fluoroscopy 7:56:55 lead sutured 8:00:53 HR=75 bpm, YSSD=564/73 mmhg, SpO2=96.0 % 8:01:16 testing the lead 8:02:42 The Atrial lead was sutured to the fascia. 8:03:46 Antibiotic sponges removed from the surgical pocket. 8:04:24 Pocket flushed with antibiotic solution 8:04:54 A PACEMAKER, ASSTABITHA MILLS MRI was connected and placed in the pocket. 8:05:20 HR=68 bpm, FLZQ=228/61 mmhg, SpO2=98.0 % 8:09:07 The pocket was closed. 8:10:19 HR=88 bpm, CHBK=410/55 mmhg, SpO2=97.0 % Second Sponge And Instrument Count Done by Jorge Webb. 8:12:33 Hypo's: 4, Sponges: 30, Bovie/scratch: 1 Sutures: ~SUTURE~, Blades: 2, Instruments: 26, Syveck Patches: ~SYVECK PATCH~ 8:15:22 HR=71 bpm, DBEH=566/53 mmhg, SpO2=97.0 % 8:17:53 Case End (Physician broke scrub) 8:17:54 Bedside Report will be given. 8:20:17 HR=71 bpm, IVMQ=268/71 mmhg, SpO2=98.0 % The Final Sponge And Instrument Count Done by Jorge Webb. 8:21:01 Hypo's: 4, Sponges: 30, Bovie/scratch: 1 Sutures: 4, Blades: 2, Instruments: 26, Syveck Patches: ~SYVECK PATCH~ 8:25:22 HR=66 bpm, RTFF=537/56 mmhg, SpO2=97.0 % End Study - Contrast Media Used In Study Contrast Total Opened (mL) Total Used (mL) Total Wasted (mL) Omnipaque 0 0 0 End Study - Radiation Exposure Fluoro Time (minutes) 3.7 End Study - Patient Disposition Complications Transferred To No Critical Care Bed
[2018-03-02] MEDS ORDERED: Acetaminophen 325 MG Tablet PO PRN (08:41)
[2018-03-02] MEDS ORDERED: Rivaroxaban 20 MG Tablet PO SCH (09:00)
--- NOTE | 2018-03-02 09:39 | XR ---
EXAM DATE: 03/02/2018 9:36 AM EDT AGE/SEX: 73 years / Female INDICATIONS: Post pacemaker. CLINICAL DATA: This is the patient's subsequent encounter. Patient reports that signs and symptoms h ave been present for 2 days and indicates a pain score of 3/10. MEDICAL/SURGICAL HISTORY: . heart attack, a-fib ,hx of right apical lung nodule. . coronary ar melissa stent, recent knee surgery . coronary artery stent, recent knee surgery, pacemaker COMPARISON: [facility] – [place]ST 2V PA&LAT, 03/01/2018. . FINDINGS: Interval placement of dual-lead pacemaker with leads projecting over the right atrium and ventricle. No significant pneumothorax. Minimal diffuse interstitial prominence unchanged from prior exam. Cardi omediastinal contours are stable. Remainder of the exam is unchanged. CONCLUSION: 1. Dual-lead pacemaker with leads projecting over the right atrium and ventricle. No pneumothorax. Electronically signed by: Zhang Hills MD 03/02/2018 9:38 AM EDT
[2018-03-02] MEDS: Senna/Docusate Sodium 8.6/50 MG Tablet PO SCH (10:21)
[2018-03-02] MEDS: Lactobacillus Acidophilus/L. Spores Tablet PO SCH (10:21)
[2018-03-02] MEDS: Pantoprazole Sodium 20 MG DR Tablet PO SCH (10:21)
[2018-03-02 10:51] VITALS: PULSE 74
--- NOTE | 2018-03-02 10:51 | MP ---
cc: Jorge Webb MD DATE OF OPERATION: 03/02/2018 PROCEDURE PERFORMED: Implantation of a permanent dual-chamber pacemaker. PREOPERATIVE DIAGNOSIS: Symptomatic sick sinus syndrome with paroxysmal atrial fibrillation, rapid ventricular response and bradycardia with pauses of greater than 4 seconds. POSTOPERATIVE DIAGNOSIS: Symptomatic sick sinus syndrome with paroxysmal atrial fibrillation, rapid ventricular response and bradycardia with pauses of greater than 4 seconds. ANESTHESIA: Intravenous Versed and fentanyl with 1% Xylocaine local. ESTIMATED BLOOD LOSS: Minimal. COMPLICATIONS: None. PROCEDURE TECHNIQUE: The patient was brought to the cardiac catheterization laboratory following informed consent. The area of the left subclavian prepped and draped in usual sterile manner. Following 15 mL of 1% Xylocaine for local anesthesia, the left subclavian vein was entered with two 18-gauge needles for placement of 2 separate floppy J-tipped guidewires. The needles were removed. An incision was then made and the pocket formed with the use of blunt dissection and Bovie cautery for hemostasis. Over the indwelling leads, two 7-Arabic introducer sheaths were passed. The dilators and guidewires were removed. Through the introducer sheaths, active fixation ventricular and atrial leads were passed under fluoroscopic guidance without difficulty to the level of the superior vena cava. The sheaths were then peeled away and removed in the usual fashion. The ventricular lead was then positioned to the region of the mid to high intraventricular septum and actively screwed in place. When good sensing and pacing thresholds were obtained, the lead was sutured in place using 2-0 silk. The atrial lead was then positioned into the region of the high lateral right atrium under fluoroscopic guidance. The lead was actively screwed in place. When good pacing and sensing thresholds obtained, this lead was sutured in place using 2-0 silk. The pocket was then copiously irrigated with vancomycin irrigation solution multiple times. The device was attached to the leads and double checked for secure fastening and proper positioning. The leads and generator were placed in the pocket and the generator was sutured to the pectoralis fascia with 2-0 silk. The pocket was closed with 3-0 Vicryl for deep closure and 4-0 Vicryl for subcuticular closure in a running fashion. Steri-Strips and a sterile pressure dressing was placed. The patient was transferred to the postanesthesia unit in stable condition. Initial postoperative check revealed normal device function and good thresholds. DEVICE INFORMATION: The implanted device is a [employer], model number [id number], serial number [id number]. The right atrial lead is a [employer], model number 2088TC-46, serial number [id number]. Acute measurements: P-wave amplitude 1.4 millivolts, impedance 700 ohms, capture threshold 1.25 volts at 1.0 milliseconds. Right ventricular lead is a [employer] model number 2088TC-52, serial number [id number]. Initial measurements: R-wave amplitude 5.6 millivolts, impedance 590 ohms, capture 0.5 volts at 0.4 milliseconds. There was no phrenic nerve or diaphragmatic stimulation at 10 volts with either lead. The patient's carvedilol will be restarted at a higher dose of 25 mg p.o. b.i.d. as tolerated by blood pressure. We will have close followup and monitoring of her rhythm and if she is having significant recurrent atrial fibrillation with uncontrolled ventricular responses, then additional medications and possibly even antiarrhythmic therapy will be instituted as an outpatient. The patient will be started on long-term anticoagulation therapy in the form of Xarelto 20 mg p.o. daily this evening after dinner. I discussed the plans in detail with the patient and Dr. Reynolds. She will be stable for discharge to rehab for her orthopedic rehabilitation, status post knee surgery tomorrow. I have arranged followup for pacemaker check and incision evaluation in 2 weeks in my office. MD MARYAM Anderson/darlene , 08:32 AM , 08:41 AM
[2018-03-02] MEDS: Calcium/Vitamin D 250/125 MG Tablet PO SCH (11:25)
[2018-03-02] MEDS: Multivitamin/Minerals Therapeutic Tablet PO SCH (13:03)
== END 2018-03-02 16:10 ==
LOC: HSDI 06:34 → N06 18:12 → N03 03-01 04:11
PROVIDERS: ADMIT Orthopaedic Surgery Sports Medicine; ATTEND Orthopaedic Surgery Sports Medicine